=== PATIENT | male | born 1970 | race Native Hawaiian/Other Pacific Islander ===

== ENCOUNTER → 2017-09-29 17:32 | Outpatient (CLI) | payer OTHER ==
[~2017-09-29 17:32] MED LIST: BACLOFEN20 MG OR; BACLOFEN20 MG PO; CLON0.5T36 PO; CYCL10TA35 PO; DIAZEPAM10 MG PO; DULO60CA2 PO; GABA400C2 PO; HYDR5TAB9 PO; IMIP50TA PO; IMIPRAM HCL50 MG PO; LORTAB 10-325 M1 TAB PO; MUPIROCIN2 % EX; NAPROSYN250 MG OR; NAPROSYN500 MG PO; PROAIR HFA INH; RANITIDINE 150150 MG PO; ROPI5T PO; VESICARE10 MG PO
== END | disposition home or self-care (01) ==
LOC: AMB 17:32
DX: S91.114A Laceration without foreign body of right lesser toe(s) without damage to nail, initial encounter (principal)

== ENCOUNTER 2017-12-21 16:07 | Emergency (ER) | payer OTHER ==
[~2017-12-21] VITALS: Ht 170.2 cm; Wt 63.5 kg
[2017-12-21 16:09] VITALS: TEMP 97.9
[2017-12-21 16:47] LABS: PLATELET COUNT 256 K/uL (142-355)
[2017-12-21 16:51] LABS: POTASSIUM 3.8 mmol/L (3.6-5.2)
[2017-12-21 18:15] VITALS: BP 105/60
== END 2017-12-21 18:20 | disposition home or self-care (01) ==
LOC: ED 16:07
PROVIDERS: Emergency Medicine
DX: K59.09 Other constipation (principal)
CPT/HCPCS: 36415; 80053; 85027; 99283

== ENCOUNTER → 2017-12-21 | Outpatient (CLI) | payer OTHER | END | disposition short-term general hospital (02) | LOC: AMB 15:31 | DX: R10.9 Unspecified abdominal pain (principal) | CPT/HCPCS: A0425; A0427 ==

== ENCOUNTER 2019-01-10 17:43 | Outpatient (CLI) | payer OTHER ==
[~2019-01-10 17:43] MED LIST changes: -BACLOFEN20 MG OR; +HYDR10TA47A PO; -LORTAB 10-325 M1 TAB PO; -NAPROSYN250 MG OR; +NAPROSYN250 MG PO
[2019-01-10] MEDS ORDERED: GRALISE600 MG PO (18:17)
[2019-01-10] MEDS ORDERED: AMIT25TA22 PO (18:18)
[2019-01-10] MEDS ORDERED: FISH OIL OMEGA-1 CAP PO (18:18)
[2019-01-10] MEDS ORDERED: ASPIRIN 81 LOW81 MG PO (18:19)
[2019-01-10] MEDS ORDERED: NUCYNTA ER100 MG PO (18:19)
[2019-01-10] MEDS ORDERED: LUBI24CA PO (18:19)
[2019-01-10] MEDS ORDERED: DULO60CA2 PO (18:24)
== END 2019-01-10 17:58 | disposition short-term general hospital (02) ==
LOC: AMB 17:43
DX: K59.09 Other constipation (principal); R10.9 Unspecified abdominal pain
CPT/HCPCS: A0425; A0429

== ENCOUNTER 2019-01-10 18:01 | Emergency (ER) | payer OTHER ==
[~2019-01-10] VITALS: Ht 170.2 cm; Wt 63.5 kg
[2019-01-10] MEDS ORDERED: GRALISE600 MG PO (18:17)
[2019-01-10] MEDS ORDERED: FISH OIL OMEGA-1 CAP PO (18:18)
[2019-01-10] MEDS ORDERED: AMIT25TA22 PO (18:18)
[2019-01-10] MEDS ORDERED: LUBI24CA PO (18:19)
[2019-01-10] MEDS ORDERED: NUCYNTA ER100 MG PO (18:19)
[2019-01-10] MEDS ORDERED: ASPIRIN 81 LOW81 MG PO (18:19)
[2019-01-10] MEDS ORDERED: DULO60CA2 PO (18:24)
[2019-01-10 19:21] LABS: PLATELET COUNT 253 K/uL (142-355)
[2019-01-10 19:29] LABS: POTASSIUM 3.9 mmol/L (3.6-5.2)
[2019-01-10 21:14] VITALS: BP 121/66; TEMP 97.9
== END 2019-01-10 21:40 | disposition home or self-care (01) ==
LOC: ED 18:01
PROVIDERS: Family Medicine
DX: K59.09 Other constipation (principal); R10.84 Generalized abdominal pain
CPT/HCPCS: 36415; 80053; 85027; 99284

== ENCOUNTER 2019-06-30 12:42 | Outpatient (CLI) | payer OTHER ==
[~2019-06-30 12:42] MED LIST changes: +AMIT25TA22 PO; +ASPIRIN 81 LOW81 MG PO; +FISH OIL OMEGA-1 CAP PO; +GRALISE600 MG PO; +LUBI24CA PO; +NUCYNTA ER100 MG PO
== END 2019-06-30 22:41 | disposition home or self-care (01) ==
LOC: RAD 12:42
DX: K59.09 Other constipation (principal)

== ENCOUNTER 2020-01-14 14:26 | Outpatient (CLI) | payer OTHER | END 2020-01-14 22:12 | disposition home or self-care (01) | LOC: RAD 14:26 | DX: M54.5 Low back pain (principal); M54.6 Pain in thoracic spine; R07.81 Pleurodynia ==

== ENCOUNTER 2020-01-18 11:30 | Inpatient (IN) | payer OTHER ==
[~2020-01-18] VITALS: Ht 170.2 cm; Wt 61.0 kg
[2020-01-18 12:58] LABS: PLATELET COUNT 250 K/uL (142-355)
[2020-01-18 13:17] LABS: POTASSIUM 4.5 mmol/L (3.6-5.2)
[2020-01-18 17:49] VITALS: BP 102/63; TEMP 97.9; Ht 170.2 cm; Wt 61.0 kg
[2020-01-18] MEDS ORDERED: BUDE1AER5 INH (19:44)
[2020-01-18] MEDS ORDERED: HYDR10TA47 PO (19:45)
[2020-01-18] MEDS ORDERED: NUCYNTA ER100 MG PO (19:46)
[2020-01-18] MEDS ORDERED: DICLOFENAC SODIUM1 % TOP (19:47)
[2020-01-18] MEDS ORDERED: NEURONTIN800 MG PO (19:49)
[2020-01-18] MEDS ORDERED: BACLOFEN20 MG PO (19:49)
[2020-01-18] MEDS ORDERED: MIRALAX3350 N1 PO (19:52)
[2020-01-18] MEDS ORDERED: SYMPROIC0.2 MG PO (19:53)
[2020-01-18] MEDS ORDERED: DOCU100C10 PO (19:53)
[2020-01-18] MEDS ORDERED: DULOXETINE HYDR60 MG PO (19:56)
[2020-01-19] VITALS: BP 96/40; TEMP 98.1
[2020-01-19 03:44] VITALS: BP 120/84; TEMP 97.8
[2020-01-19 08:00] VITALS: BP 120/60; TEMP 98.1
[2020-01-19 11:19] LABS: PLATELET COUNT 239 K/uL (142-355)
[2020-01-19 11:25] LABS: POTASSIUM 4.1 mmol/L (3.6-5.2)
[2020-01-19 12:00] VITALS: BP 96/50; TEMP 97.7
[2020-01-19] MEDS ORDERED: NUCYNTA100 MG PO (13:07)
[2020-01-19 16:00] VITALS: BP 100/58; TEMP 97.9
[2020-01-19 20:23] VITALS: BP 93/44; TEMP 97.6
[2020-01-20] VITALS: BP 128/55; TEMP 97.5
[2020-01-20 03:49] VITALS: BP 88/42; TEMP 97.8
[2020-01-20 05:32] LABS: PLATELET COUNT 222 K/uL (142-355)
[2020-01-20 05:44] LABS: POTASSIUM 4.3 mmol/L (3.6-5.2)
[2020-01-20 08:00] VITALS: BP 85/52; TEMP 97.9
[2020-01-20 12:00] VITALS: BP 109/56; TEMP 98
[2020-01-20 16:00] VITALS: BP 103/60; TEMP 97.9
[2020-01-20 20:08] VITALS: BP 86/43; TEMP 98.1
[2020-01-21 00:10] VITALS: BP 101/64; TEMP 98.5
[2020-01-21 02:20] LABS: PLATELET COUNT 224 K/uL (142-355)
[2020-01-21 02:30] LABS: POTASSIUM 4.1 mmol/L (3.6-5.2)
[2020-01-21 04:00] VITALS: BP 98/71; TEMP 98.5
[2020-01-21 08:00] VITALS: BP 90/46; TEMP 97.9
[2020-01-21 12:09] VITALS: BP 88/48; TEMP 97.8
[2020-01-21 16:00] VITALS: BP 103/44; TEMP 97.7
[2020-01-21 20:00] VITALS: BP 86/47; TEMP 98.1
[2020-01-22] VITALS (7 sets, daily range): BP systolic 76–109; BP diastolic 32–81; TEMP 97.7–98.6
[2020-01-22 05:34] LABS: PLATELET COUNT 223 K/uL (142-355)
[2020-01-23 04:00] VITALS: BP 119/65; TEMP 98.1
[2020-01-23 08:00] VITALS: BP 113/61; TEMP 98.1
== END 2020-01-23 12:15 | disposition home or self-care (01) | DRG 689 ==
LOC: MED/SURG 11:30
PROVIDERS: ADMIT Family Medicine
DX: N39.0 Urinary tract infection, site not specified (principal); G82.50 Quadriplegia, unspecified; R50.9 Fever, unspecified; R33.8 Other retention of urine; R53.81 Other malaise; F32.89 Other specified depressive episodes; F17.200 Nicotine dependence, unspecified, uncomplicated; Z20.828 Contact with and (suspected) exposure to other viral communicable diseases
CPT/HCPCS: 36415; 80053; 81000; 82550; 83735; 84484; 85027; 87040; 87635; 93005; 96365; 96372; 96375; G2023; J0456; J1650; U00003

== ENCOUNTER 2020-02-25 19:07 | Emergency (ER) | payer OTHER ==
[~2020-02-25] VITALS: Ht 170.2 cm; Wt 59.0 kg
[2020-02-25 19:07] VITALS: TEMP 98.9
[~2020-02-25 19:07] MED LIST changes: +BUDE1AER5 INH; +DICLOFENAC SODIUM1 % TOP; +DOCU100C10 PO; +DULOXETINE HYDR60 MG PO; +HYDR10TA47 PO; +MIRALAX3350 N1 PO; +NEURONTIN800 MG PO; +NUCYNTA100 MG PO; +SYMPROIC0.2 MG PO
[2020-02-25 19:43] LABS: PLATELET COUNT 241 K/uL (142-355)
[2020-02-25 19:56] LABS: POTASSIUM 3.6 mmol/L (3.6-5.2)
[2020-02-25 22:30] VITALS: BP 103/61
== END 2020-02-25 23:15 | disposition home or self-care (01) ==
LOC: ED 19:07
PROVIDERS: Hospitalist
PROC: 0T9B70Z Drainage of Bladder with Drainage Device, Via Natural or Artificial Opening (ICD-10-PCS; principal; 2020-02-25)
DX: K59.09 Other constipation (principal); K64.8 Other hemorrhoids
CPT/HCPCS: 36415; 80053; 81000; 82150; 82272; 83690; 85027; 85610; 85730; 96360; 96375; 99284; J2270; J2405; J3490; Q9963

== ENCOUNTER 2021-07-18 12:53 | Outpatient (CLI) | payer OTHER | END 2021-07-18 20:42 | disposition home or self-care (01) | LOC: RAD 12:53 | PROVIDERS: ATTEND Family Medicine | DX: J44.1 Chronic obstructive pulmonary disease with (acute) exacerbation (principal) ==

== ENCOUNTER 2021-12-25 10:05 | Emergency (ER) | payer OTHER ==
[~2021-12-25] VITALS: Ht 170.2 cm; Wt 59.0 kg
[2021-12-25 10:57] LABS: PLATELET COUNT 221 K/uL (142-355)
[2021-12-25 11:07] LABS: POTASSIUM 3.7 mmol/L (3.6-5.2)
[2021-12-25] MEDS ORDERED: MAG CITRATE PO (11:24)
[2021-12-25 13:40] VITALS: BP 105/56; TEMP 97.6
== END 2021-12-25 13:40 | disposition home or self-care (01) ==
LOC: ED 10:05
PROVIDERS: Emergency Medicine
DX: K59.09 Other constipation (principal); Z87.828 Personal history of other (healed) physical injury and trauma
CPT/HCPCS: 80053; 80320; 85027; 99283

== ENCOUNTER 2022-12-15 15:31 | Inpatient (IN) | payer OTHER ==
[~2022-12-15] VITALS: Ht 170.2 cm; Wt 60.9 kg
[~2022-12-15 15:31] MED LIST changes: +MAG CITRATE PO; -NAPROSYN250 MG PO; +NAPROXEN250 MG PO
[2022-12-15 15:38] VITALS: BP 100/67; TEMP 97.5
[2022-12-15 16:18] LABS: PLATELET COUNT 194 K/uL (142-355)
[2022-12-15 16:21] LABS: POTASSIUM 3.8 mmol/L (3.6-5.2)
[2022-12-15 20:45] VITALS: BP 99/51
[2022-12-15 21:00] VITALS: BP 103/54
[2022-12-15 22:00] VITALS: BP 107/40
[2022-12-15 23:00] VITALS: BP 86/40
[2022-12-15 23:30] VITALS: BP 97/40
[2022-12-16] VITALS (19 sets, daily range): BP systolic 85–128; BP diastolic 35–96; TEMP 97.7–98.5; Ht 170.2 cm; Wt 60.9 kg
[2022-12-16 15:29] LABS: PLATELET COUNT 209 K/uL (142-355)
[2022-12-16 15:40] LABS: POTASSIUM 3.7 mmol/L (3.6-5.2)
[2022-12-16] MEDS ORDERED: [UNRECOGNIZED DRUG - OTHER] PO (16:13)
[2022-12-16] MEDS ORDERED: MOVANTIK25 MG PO (16:14)
[2022-12-16] MEDS ORDERED: TRIA0.1C5 TOP (16:15)
[2022-12-16] MEDS ORDERED: PERCOCET1 TA3 PO (16:19)
[2022-12-16] MEDS ORDERED: CYCL10TA35 PO (16:19)
[2022-12-16] MEDS ORDERED: RELISTOR150 MG PO (16:21)
[2022-12-16] MEDS ORDERED: XTAMPZA ER9 MG PO (16:22)
[2022-12-17 04:00] VITALS: BP 95/48; TEMP 98.4
[2022-12-17 04:50] LABS: PLATELET COUNT 246 K/uL (142-355)
[2022-12-17 04:56] LABS: POTASSIUM 3.7 mmol/L (3.6-5.2)
[2022-12-17 08:00] VITALS: BP 129/48; TEMP 98
[2022-12-17 12:00] VITALS: BP 103/47; TEMP 98.9
[2022-12-17 16:00] VITALS: BP 90/48; TEMP 98.5
[2022-12-17 20:00] VITALS: BP 92/49; TEMP 99.2
[2022-12-17 23:39] VITALS: BP 110/58; TEMP 98.9
[2022-12-18 03:41] VITALS: BP 112/48; TEMP 98.5
[2022-12-18 04:44] LABS: PLATELET COUNT 292 K/uL (142-355)
[2022-12-18 04:51] LABS: POTASSIUM 3.3 mmol/L (3.6-5.2)
[2022-12-18 08:00] VITALS: BP 132/83; TEMP 97.9
[2022-12-18 12:00] VITALS: BP 110/54; TEMP 97.8
[2022-12-18 16:00] VITALS: BP 97/42; TEMP 97.7
[2022-12-18 20:00] VITALS: BP 98/44; TEMP 98.7
[2022-12-19] VITALS: BP 91/62; TEMP 98.6
[2022-12-19 04:00] VITALS: BP 112/52; TEMP 98.4
[2022-12-19 04:52] LABS: PLATELET COUNT 379 K/uL (142-355)
[2022-12-19 05:01] LABS: POTASSIUM 3.8 mmol/L (3.6-5.2)
[2022-12-19 08:00] VITALS: BP 95/57; TEMP 98.2
[2022-12-19 12:00] VITALS: BP 101/33; TEMP 97.8
[2022-12-19 16:00] VITALS: BP 100/55; TEMP 98.2
[2022-12-19 20:00] VITALS: BP 87/32; TEMP 98
[2022-12-20] VITALS: BP 92/38; TEMP 98
[2022-12-20 04:00] VITALS: BP 143/49; TEMP 98.3
[2022-12-20 08:00] VITALS: BP 113/43; TEMP 98.3
[2022-12-20 08:45] LABS: PLATELET COUNT 467 K/uL (142-355)
[2022-12-20 08:57] LABS: POTASSIUM 4.2 mmol/L (3.6-5.2)
[2022-12-20 11:53] VITALS: BP 114/61; TEMP 97.8
[2022-12-20 15:58] VITALS: BP 116/58; TEMP 97.7
[2022-12-20 20:00] VITALS: BP 104/57; TEMP 98.4
[2022-12-21] VITALS: BP 93/47; TEMP 98.5
[2022-12-21 04:00] VITALS: BP 99/33; TEMP 98.2
[2022-12-21 04:47] LABS: PLATELET COUNT 438 K/uL (142-355)
[2022-12-21 04:59] LABS: POTASSIUM 4.3 mmol/L (3.6-5.2)
[2022-12-21 08:00] VITALS: BP 104/51; TEMP 97.9
[2022-12-21] MEDS ORDERED: FURO40TA93 PO (09:26)
[2022-12-21] MEDS ORDERED: KLOR-CON M2020 MEQ PO (09:27)
[2022-12-21] MEDS ORDERED: DOXYCYC MONO100 MG PO (09:28)
== END 2022-12-21 11:25 | disposition home or self-care (01) | DRG 602 ==
LOC: ED 15:31 → MED/SURG 18:25
PROVIDERS: Family Medicine; ADMIT Nurse Practitioner; ATTEND Internal Medicine Endocrinology, Diabetes & Metabolism
DX: L03.116 Cellulitis of left lower limb (principal); G82.50 Quadriplegia, unspecified; L03.115 Cellulitis of right lower limb; R60.0 Localized edema; F32.A Depression, unspecified; G89.4 Chronic pain syndrome; K59.09 Other constipation; M62.838 Other muscle spasm; N31.8 Other neuromuscular dysfunction of bladder; Z79.01 Long term (current) use of anticoagulants
CPT/HCPCS: 36415; 80048; 80053; 80202; 81002; 85027; 87040; 96365; 99284; J1940; J3370

== ENCOUNTER 2022-12-23 09:35 | Emergency (ER) | payer OTHER ==
[~2022-12-23] VITALS: Ht 170.2 cm; Wt 72.6 kg
[2022-12-23 09:35] VITALS: TEMP 98.1
[~2022-12-23 09:35] MED LIST changes: +DOXYCYC MONO100 MG PO; +FURO40TA93 PO; +KLOR-CON M2020 MEQ PO; +MOVANTIK25 MG PO; +PERCOCET1 TA3 PO; +RELISTOR150 MG PO; +TRIA0.1C5 TOP; +XTAMPZA ER9 MG PO; +[UNRECOGNIZED DRUG - OTHER] PO
[2022-12-23 09:58] LABS: PLATELET COUNT 244 K/uL (142-355)
[2022-12-23 10:15] LABS: SODIUM 144 mmol/L (136-145)
[2022-12-23 10:21] LABS: POTASSIUM 2.3 mmol/L (3.6-5.2)
[2022-12-23 12:01] LABS: POTASSIUM 3.2 mmol/L (3.6-5.2)
[2022-12-23 12:40] VITALS: BP 82/50
== END 2022-12-23 13:07 | disposition still patient (30) ==
LOC: ED 09:35
PROVIDERS: Family Medicine; Nurse Practitioner Family
DX: R06.00 Dyspnea, unspecified (principal); E16.2 Hypoglycemia, unspecified
CPT/HCPCS: 36415; 36600; 51702; 80053; 80307; 81000; 82805; 82948; 83605; 84484; 85027; 87040; 87077; 87086; 87088; 87186; 93005; 94660; 96361; 96365; 96375; 99285; J0610; J0696; J2060; J2310; J3490; J7060

== ENCOUNTER 2023-01-18 16:24 | Emergency (ER) | payer OTHER ==
[~2023-01-18] VITALS: Ht 170.2 cm; Wt 61.7 kg
[2023-01-18 16:48] VITALS: BP 84/49; TEMP 97.2
[2023-01-18 17:10] LABS: PLATELET COUNT 308 K/uL (142-355)
[2023-01-18 17:14] LABS: POTASSIUM 4.4 mmol/L (3.6-5.2)
== END 2023-01-18 18:20 | disposition home or self-care (01) ==
LOC: ED 16:24
PROVIDERS: Family Medicine
DX: R33.9 Retention of urine, unspecified (principal); R30.0 Dysuria
CPT/HCPCS: 51702; 80053; 81002; 83605; 85027; 87040; 96360; 99284